=== PATIENT | male | born 1970 | race Caucasian/White ===

== ENCOUNTER 2022-05-07 09:22 | Day surgery (SDC) | payer OTHER ==
[~2022-05-07] VITALS: Ht 182.9 cm; Wt 108.9 kg
[2022-05-07] MEDS ORDERED: fentaNYL citrate 0.05 MG/ML VIAL ONE (10:20)
[2022-05-07] MEDS ORDERED: LIDOCAINE 2% 100 MG/5 ML UJET TP ONE (10:20)
[2022-05-07] MEDS ORDERED: KETOROLAC 60 MG/2 ML VIAL IM ONE (10:40)
[2022-05-07] MEDS ORDERED: KETOROLAC 30 MG/ML VIAL IVP SCH (12:30)
== END 2022-05-07 11:25 | disposition home or self-care (01) ==
LOC: MDS 09:22 → MMU 09:22 → MDS 11:25
PROVIDERS: ATTEND Internal Medicine Gastroenterology
DX: K60.1 Chronic anal fissure (principal); K21.9 Gastro-esophageal reflux disease without esophagitis; Z20.822 Contact with and (suspected) exposure to COVID-19; Z79.899 Other long term (current) drug therapy
CPT/HCPCS: 45330; 87426; J1885; 45350; J3010